=== PATIENT | male | born 1980 | race Caucasian/White ===

== ENCOUNTER 2016-07-05 11:56 | Emergency (ER) | payer BC ==
[~2016-07-05] VITALS: Ht 177.8 cm; Wt 93.6 kg
[2016-07-05] MEDS ORDERED: ULTRAM50 MG PO (14:14)
[2016-07-05 14:27] VITALS: BP 119/86
== END 2016-07-05 14:29 | disposition home or self-care (01) ==
LOC: EME 11:56
DX: M25.511 Pain in right shoulder (principal)
CPT/HCPCS: 73030; 99281; 99284